=== PATIENT | female | born 1965 ===

== ENCOUNTER 2017-09-16 13:41 | Emergency (ER) | payer OTHER ==
[2017-09-16 13:52] VITALS: BP 115/76; PULSE 72; RESP 16; TEMP 98.5; O2SAT 98
--- NOTE | 2017-09-16 14:20 | C.PDOC ---
History Of Present Illness 52 yo female come in for evaluation of Left big toe pain, swelling gradually developed for past 2 days " after some heavy object fell onto my toe". Pt admits , pain is localized to left 1st toe, worse with ambulation. Otherwise, denies obvious deformity, weakness to left foot, sensory or vascular deficits. Ambulatory, not in any apparent distress. Time Seen by Provider: 09/16/17 13:52 Chief Complaint (Nursing): Lower Extremity Problem/Injury History Per: Patient Past Medical History Reviewed: Historical Data, Nursing Documentation, Vital Signs Vital Signs: Last Vital Signs Temp 98.5 F 09/16/17 13:50 Pulse 72 09/16/17 13:50 Resp 16 09/16/17 13:50 BP 115/76 09/16/17 13:50 Pulse Ox 98 09/16/17 13:50 - Medical History PMH: GERD Family History: States: No Known Family Hx - Social History Hx Alcohol Use: No Hx Substance Use: No - Immunization History Hx Tetanus Toxoid Vaccination: Yes (this year 2015) Hx Influenza Vaccination: No Hx Pneumococcal Vaccination: No Review Of Systems Except As Marked, All Systems Reviewed And Found Negative. Constitutional: Negative for: Fever Musculoskeletal: Positive for: Foot Pain Skin: Positive for: Bruising Neurological: Negative for: Weakness, Numbness Physical Exam - Physical Exam Appears: Well, Non-toxic, No Acute Distress Skin: Normal Color, Warm, Ecchymosis (Left 1st toe) Head: Normacephalic Extremity: Normal ROM (left foot), Tenderness (Left 1st toe), Capillary Refill ( less than 2sec to left foot), No Deformity, Swelling (diffuse to left 1st toe) Pulses: Left Dorsalis Pedis: Normal DTR: Ankle (L): 2+ Neurological/Psych: Oriented x3, Normal Speech ED Course And Treatment O2 Sat by Pulse Oximetry: 98 - Other Rad Left 1st toe X-Ray: Interpreted by Me, Viewed By Me Interpretation: (+) distal phalanx comminuted fx Progress Note: On re-eavl, pt is afebrile, hemodynamicalys table. non-toxic. Ambulatory in Ed with stable gait. Left foot: tenderness and edema to left 1st toe. No palpable deformity, no open wound. FAROM, no neurovascular deficits. Imaging review (+) comminuted fx to left 1st distal phalanx. Melida tape applied to left 1st toe. Pt advised and ref. to f/u with Podiatry clinic in 2 days for re-eavl. return if any new changes. Disposition Counseled Patient/Family Regarding: Studies Performed, Diagnosis, Need For Followup, Rx Given - Disposition Referrals: [facility] [Outside] Disposition: HOME/ ROUTINE Disposition Time: 14:05 Condition: STABLE Additional Instructions: RICE-REST,ICE,COMPRESSION,ELEVATION MELIDA TAPE FOR 2 WEEKS TAKE PAIN MEDICATION NEED FOLLOW UP WITH [employer] BRAKE RIGGER ON WEDNESDAY FROM NOON-3PM FOR RE-EVALUATION AND FURTHER TREATMENT RETURN IF ANY NEW CHANGES. Prescriptions: traMADol [Ultram] 50 mg PO TID #7 tab Instructions: Toe Fracture Print Language: ROMANSH - Clinical Impression Clinical Impression: Toe fracture
--- NOTE | 2017-09-16 15:05 | RAD ---
PROCEDURE: Left Foot Radiographs. HISTORY: injury COMPARISON: None. FINDINGS: BONES: A nondisplaced 1st distal phalangeal fracture is present. The top shows mild comminution. The proximal aspect suggest 1st interphalangeal joint extension. JOINTS: Mild 1st metatarsal joint space narrowing -osteoarthrosis SOFT TISSUES: Swelling great toe OTHER FINDINGS: None. IMPRESSION: Nondisplaced distal phalangeal fracture.
== END 2017-09-16 14:27 | disposition home or self-care (01) ==
LOC: C.ER 13:41
DX: S92.422A Displaced fracture of distal phalanx of left great toe, initial encounter for closed fracture (principal); W22.8XXA Striking against or struck by other objects, initial encounter; Y92.9 Unspecified place or not applicable

== ENCOUNTER 2017-12-20 13:03 | Emergency (ER) | payer OTHER ==
[2017-12-20 13:38] VITALS: BP 107/70; PULSE 66; RESP 18; TEMP 98.4; O2SAT 97
--- NOTE | 2017-12-20 14:13 | C.PDOC ---
History Of Present Illness 52 year old female presents to the ER with a complaint of right ear pain and sore throat for the past 2 weeks. Notes occasional cough, "not a lot". Patient was seen by PMD who gave her Rx for cough syrup which she has been taking along with OTC pain medication with no relief. Denies fever, chest pain, sob, difficulty breathing or swallowing, n/v, or headache. Time Seen by Provider: 12/20/17 13:38 Chief Complaint (Nursing): ENT Problem History Per: Patient History/Exam Limitations: None Onset/Duration Of Symptoms: Days Current Symptoms Are (Timing): Still Present Quality (Mouth/Throat): Tenderness Symptoms Have Been: Continuous Past Medical History Reviewed: Historical Data, Nursing Documentation, Vital Signs Vital Signs: Last Vital Signs Temp 98.4 F 12/20/17 13:33 Pulse 66 12/20/17 13:33 Resp 18 12/20/17 13:33 BP 107/70 12/20/17 13:33 Pulse Ox 97 12/20/17 13:33 - Medical History PMH: GERD Family History: States: Unknown Family Hx - Social History Hx Alcohol Use: No Hx Substance Use: No - Immunization History Hx Tetanus Toxoid Vaccination: Yes (this year 2015) Hx Influenza Vaccination: No Hx Pneumococcal Vaccination: No Review Of Systems Except As Marked, All Systems Reviewed And Found Negative. Constitutional: Negative for: Fever, Chills ENT: Positive for: Ear Pain, Throat Pain Respiratory: Positive for: Cough Gastrointestinal: Negative for: Nausea, Vomiting Physical Exam - Physical Exam Appears: Well, Non-toxic, No Acute Distress (no cough noted, spkeaing in full sentences, no evidence of difficulty swallowing, no drooling) Skin: Normal Color, Warm, Dry Head: Atraumatic, Normacephalic Eye(s): bilateral: Normal Inspection, EOMI Ear(s): Bilateral: Normal Nose: Normal Oral Mucosa: Moist Throat: Erythema, No Exudate Neck: Normal, Normal ROM, Supple Lymphatic: Adenopathy (submandibular) Chest: Symmetrical Cardiovascular: Rhythm Regular Respiratory: Normal Breath Sounds, No Accessory Muscle Use Extremity: Normal ROM Neurological/Psych: Oriented x3, Normal Speech ED Course And Treatment O2 Sat by Pulse Oximetry: 97 (Room air) Pulse Ox Interpretation: Normal Progress Note: Patient is resting comfortably in the ER in no acute distress, vitals are stable, will start on antibiotics and advise to follow up with PMD for further evaluation. Return precautions given. Disposition - Disposition Referrals: hCeko Ann MD [Staff Provider] - Disposition: HOME/ ROUTINE Disposition Time: 14:45 Condition: STABLE Additional Instructions: Vaya a alvarez mdico o la clnica en 2-5 elizondo sin falta, para mas evaluacin. [place] los medicamentos tonny indicado. Volver a la richard de emergencia en cualquier momento si los sntomas persisten o empeoran. Prescriptions: Amoxicillin 875 mg PO BID #20 tablet Ibuprofen [Motrin] 600 mg PO Q6 PRN #20 tab PRN Reason: Pain, Mild (1-3) Instructions: Sore Throat, Adult (DC) Forms: [facility] (Welsh) Print Language: VINCENTIAN - Clinical Impression Clinical Impression: Pharyngitis - PA / RESIDENTIAL NURSE / Resident Statement MD/DO has reviewed & agrees with the documentation as recorded. - Scribe Statement The provider has reviewed the documentation as recorded by the Scribvasu Baltazar All medical record entries made by the Scribvasu were at my direction and personally dictated by me. I have reviewed the chart and agree that the record accurately reflects my personal performance of the history, physical exam, medical decision making, and the department course for this patient. I have also personally directed, reviewed, and agree with the discharge instructions and disposition.
== END 2017-12-20 14:57 | disposition home or self-care (01) ==
LOC: C.ER 13:03
DX: J02.9 Acute pharyngitis, unspecified (principal)

== ENCOUNTER 2018-05-25 11:21 | Outpatient (CLI) | payer SELFPAY | END 2018-05-25 11:22 | disposition home or self-care (01) | LOC: C.MAMMO 11:21 | DX: N64.9 Disorder of breast, unspecified (principal); Z12.31 Encounter for screening mammogram for malignant neoplasm of breast ==